=== PATIENT | male | born 1970 | race Caucasian/White ===

== ENCOUNTER 2020-04-26 23:54 | Emergency (ER) | payer OTHER, SELFPAY ==
--- NOTE | ~2020-04-26 | XR_ITS ---
EXAMINATION: XR abdomen/kub 1V DATE: 04/27/2020 01:05 INDICATION: Left flank pain TECHNIQUE: A supine view of the abdomen on 2 radiographs was obtained. COMPARISON: None. FINDINGS: 4-5 mm stone projects over the lower pole of the left kidney. There is an additional 3-4 mm stone in the proximal left ureter projecting near the tip of the L5 left transverse process. Moderate amount o f stool in the proximal colon. No dilated gas-filled bowel to suggest obstruction. Small bone island in the left innominate bone. 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 IMPRESSION: 1. Left nephrolithiasis including 3-4 mm stone in the proximal left ureter. Reviewed, dictated and finalized at location A.
--- NOTE | ~2020-04-26 | CT_ITS ---
EXAMINATION: CT abdomen pelvis wo con DATE: 04/27/2020 00:55 INDICATION: Left flank pain. Hematuria. TECHNIQUE: Computed tomography (CT) of the abdomen and pelvis was performed without intravenous contr ast. Automated exposure control and iterative reconstruction technique were employed. The dose-length product was 1004.06 mGy-cm. COMPARISON: None FINDINGS: Lung bases are clear. Heart size is normal. No pericardial or pleural effusion. Diffuse hepatic steat osis with focal sparing along the gallbladder fossa. Gallbladder and spleen are normal. Diffuse pancr eatic atrophy sparing the uncinate process with dilation of the main pancreatic duct measures up to 8 mm in diameter. There are bilateral fat-containing adrenal adenomas measuring 1.8 cm on both the lef t and right. Bilateral nephrolithiasis including 4 mm stone at the lower pole of the left kidney, 4-5 mm stone at a lower pole calyx of the left kidney and 4 mm stone in the proximal left ureter. There is mild left hydronephrosis. Bladder is normal. There is mild colonic diverticulosis with a sigmoid p redominance. There is no adjacent inflammatory change to suggest diverticulitis. No free intraperito chloe gas or fluid. No pathologically enlarged abdominal or pelvic lymphadenopathy. Moderate thoracolu mbar spondylosis. IMPRESSION: 1. Bilateral nephrolithiasis including a 4 mm at least partially obstructing stone in the proximal le ft ureter with mild left hydronephrosis. 2. Pancreatic atrophy with dilation of the main pancreatic duct. Differential would include sequela o f chronic pancreatitis or occult malignancy the head of the pancreas. There is no clear history for p rior pancreatitis would consider multiphase pre and postcontrast CT or MRI. Reviewed, dictated and finalized at location A. IMPRESSION: 1. Bilateral nephrolithiasis including a 4 mm at least partially obstructing st one in the proximal left ureter with mild left hydronephrosis. 2. Pancreatic atrophy with dilation of the main pancreatic duct. Differential w ould include sequela of chronic pancreatitis or occult malignancy the head of t he pancreas. There is no clear history for prior pancreatitis would consider mu ltiphase pre and postcontrast CT or MRI.
[2020-04-26 23:57] VITALS: BP 161/95; PULSE 75; RESP 20; TEMP 36.8; O2SAT 100
[2020-04-27 00:21] LABS: Basophils Absolute Auto 0.1 K/mm3 (0.0-0.1); Basophils Percent Auto 0.4 % (0.2-1.2); Eosinophils Absolute Auto 0.1 K/mm3 (0-0.3); Eosinophils Percent Auto 0.4 % (0-4.4); Hematocrit 44.8 % (42.0-52.0); Hemoglobin 15.6 g/dL (14.0-18.0); Immature Granulocyte Absolute 0.05 K/mm3 (0.00-0.031); Immature Granulocyte Percent A 0.4 % (0-0.5); Lymphocytes Absolute Auto 2.05 K/mm3 (0.9-3.2); Lymphocytes Percent Auto 16.2 % (18.3-44.2); Mean Corpuscular HGB Conc 34.8 g/dl (32-36); Mean Corpuscular Hemoglobin 31.6 pg (26-34); Mean Corpuscular Volume 90.9 fl (80-100); Mean Platelet Volume 9.2 fl (7.4-10.4); Monocytes Absolute Auto 0.9 K/mm3 (0.1-0.6); Monocytes Percent Auto 6.7 % (2.6-8.5); Neutrophils Absolute Auto 9.6 K/mm3 (1.3-6.7); Neutrophils Percent Auto 75.9 % (45.5-73.1); Platelet Count Result 300 k/mm3 (150-375); Red Blood Count 4.93 M/mm3 (4.6-6.20); Red Cell Distribution Width 12.2 % (11.5-14.5); White Blood Count 12.6 K/mm3 (4.5-10.0)
[2020-04-27 00:28] LABS: Add Urine Microscopic? YES; Appearance Urine Clear (Clear); Bilirubin Urine Negative (Negative); Blood Urine 3+ (Negative); Color Urine Yellow (Yellow); Glucose Urine UA 3+ mg/dL (Negative); Ketones Urine Trace mg/dL (Negative); Leukocyte Esterase Ur Negative LEU/UL (Negative); Mucus Urine Rare /lpf; Nitrate Urine Negative (Negative); Protein Urine 1+ mg/dL (Negative); RBC Urine >75 /hpf (0-2); Specific Grav Ur 1.026 (1.001-1.035); Squamous Epithelial Cell Urine Rare /hpf (Few); Urobilinogen Urine Negative mg/dL (<2.0); WBC Urine 0-3 /hpf
[2020-04-27 00:33] LABS: Blood Urea Nitrogen 13 mg/dL (9-20); Calcium 9.2 mg/dL (8.4-10.2); Carbon Dioxide 25 mmol/L (22-30); Chloride 100 mmol/L (98-107); Estimated CRCL calculation 155 ml/min; Estimated Glomerular Filt Rate > 60; Glucose 268 mg/dL (75-110); Potassium 4.4 mmol/L (3.4-5.0); Sodium 137 mmol/L (137-145)
--- NOTE | 2020-04-27 00:40 | ED.BACK ---
HPI - Back Pain/Injury General Chief Complaint: Abdominal Pain Stated Complaint: L FLANK PAIN Time Seen by Provider: 04/27/20 00:34 Source: patient Mode of arrival: ambulatory Limitations: no limitations History of Present Illness HPI Narrative: This patient is a 49 year old male with history of kidney stones who presents for evaluation of left lower back pain. His pain started on Monday and he thought pain was resolving. It worsened on Monday and tonight his pain became worse. He has been having nausea and vomiting , and he states this pain is due to a kidney stone. He feels like he will need to get the stone removed. He has not taken any medication for pain because he states medication normally does not help. HE denies fever or chills. He does not follow with urology for his kidney stones. MD elicited complaint: back pain Pertinent past history: kidney stones Onset (ago): day(s) (6) Timing: intermittent Pain scale (0-10): 7 Similar Symptoms Previously: Yes Quality: dull Location: left lower back Radiation: none Exacerbating factors: none Relieving factors: none Related Data Home Medications Medication Instructions Recorded Confirmed albuterol sulfate 90 mcg/actuation 2 puff INHALATION Q4H PRN gm 09/11/19 aerosol inhaler atorvastatin 20 mg tablet 20 mg PO DAILY 09/11/19 04/27/20 blood sugar diagnostic #10 each 09/11/19 blood-glucose meter #1 each 09/11/19 escitalopram oxalate 20 mg tablet 20 mg PO DAILY 09/11/19 04/27/20 fexofenadine 180 mg tablet 180 mg PO DAILY 09/11/19 04/27/20 lancets 33 gauge #100 each 09/11/19 metformin 500 mg tablet,extended 2,000 mg PO QPM tablet 09/11/19 04/27/20 release 24 hr Allergies Allergy/AdvReac Type Severity Reaction Status Date / Time No Known Allergies Allergy Verified 04/26/20 23:59 Review of Systems Review of Systems: All systems reviewed & are unremarkable except as noted in HPI and below Constitutional: Constitutional: Denies chills, Denies fever(s) and Denies weakness Respiratory: Respiratory: Denies cough and Denies dyspnea Gastrointestinal: Gastrointestinal: Denies abdominal pain, Reports nausea and Reports vomiting Genitourinary: Genitourinary: Denies hematuria, Denies oliguria, Denies dysuria and Denies urinary frequency Musculoskeletal: Musculoskeletal: Reports back pain PMFSH Past Medical History Medical History (Updated 04/27/20 @ 01:38 by Myriam Woods MD) Diabetes mellitus Kidney stone Surgical History Surgical History History of removal of calculus of renal pelvis through percutaneous nephrostomy Social History Social History (Updated 01/06/20 @ 08:34 by Love Paul [facility]) Smoking status: Never smoker Second hand tobacco smoke exposure: No Alcohol intake: current Substance use: never Substance use type: does not use Gender identity (if verbalized by the patient): Male Spiritual care concerns: No Agree to blood products: Yes Exam Narrative: Exam Narrative: GENERAL: Well-appearing, well-nourished, and in no acute distress. HEAD: Normocephalic, atraumatic EYES: PERRLA and EOMI, conjunctiva clear without discharge THROAT:Mucous membranes moist, NECK: Supple, RESPIRATORY: No respiratory distress, Airway patent, Respirations non-labored, Clear to auscultation without rales, rhonchi or wheeze HEART: Regular rate and rhythm. No murmur heard. Normal peripheral pulses. ABDOMEN: Soft, nontender, nondistended, normal active bowel sounds. No masses. No rebound or guarding, No organomegaly. left cva tenderness EXTREMITIES: No edema, normal strength with full range of motion. SKIN: Warm, dry, normal color without rash NEURO: Alert and oriented x3. CN 2-12 grossly intact. No focal deficits. PSYCH: Normal mood and affect. Course Reevaluation(s) Reevaluation #1: PAtient states that his pain has improved. He is comfortable with discharge home for
[2020-04-27] MEDS: SODIUM CHLORIDE 0.9% IV 1,000 ML 999 ML IV CONT (00:44)
[2020-04-27] MEDS: ONDANSETRON INJ 4 MG/2 ML VIAL IV PUSH (00:44)
[2020-04-27] MEDS: HYDROMORPHONE HCL 1 MG/ML INJ IV PUSH (00:45)
[2020-04-27] MEDS: TAMSULOSIN HCL 0.4 MG CAPSULE PO (01:33)
[2020-04-27 01:50] VITALS: BP 151/85; PULSE 71; RESP 18; O2SAT 99
== END 2020-04-27 01:51 | disposition home or self-care (01) ==
PROVIDERS: Emergency Provider General Practice; PCP Family Medicine
DX: N20.2 Calculus of kidney with calculus of ureter (principal); E11.9 Type 2 diabetes mellitus without complications; Z79.84 Long term (current) use of oral hypoglycemic drugs; Z87.442 Personal history of urinary calculi
CPT/HCPCS: 36415; 74018; 74176; 80048; 81001; 85025; 96365; 96375; 99284; A9270; J0131; J1170; J2405; J7030

== ENCOUNTER 2020-06-26 10:39 | Outpatient (CLI) | payer OTHER, SELFPAY ==
--- NOTE | ~2020-06-26 | MR_ITS ---
EXAMINATION: MR MRCP wo/w con/w 3D wo ind DATE: 06/26/2020 12:14 INDICATION: Abnormal pancreatic ductal dilatation on CT TECHNIQUE: Magnetic resonance imaging (MRI) of the abdomen was performed without and with intravenous contrast. Sequences included coronal T2-weighted SS-FSE ARC, coronal T2-weighted FS SS-FSE, coronal T2-weighted 2D FS FIESTA, Water:Coronal LAVA-Flex, sagittal T2-weighted SS-FSE ARC, axial SSFSE ARC, axial 3D DualEcho, axial DWI B=600, axial T1-weighted LAVA, FAT:Coronal LAVA-Flex, and coronal in and opposed phase LAVA-Flex. Thick-slab T2-weighted FRFSE-XL images were obtained for magnetic resonance cholangiopancreatography (MRCP). Maximum intensity projection 3-D reconstructions of the volumetric data were created by the technologist. Postcontrast sequences included a time course of axial T1-weig hted LAVA, FAT:Coronal LAVA-Flex, coronal in and opposed phase LAVA-Flex, and Water:Coronal LAVA-Flex . COMPARISON: CT, 04/27/2020 CONTRAST: Multihance, 20 cc FINDINGS: ABDOMEN MRI: The lung bases are clear. The heart size is normal. The liver, spleen, and gallbladder a re normal. There are bilateral adrenal adenomas measuring 1.8 cm. Cysts of the kidneys measure up to 9 mm on the left. There is diffuse atrophy of the body and tail of the pancreas. There is a questiona ble 1.6 x 1.1 cm mass at the junction of the main pancreatic duct in the second portion of the duoden um. There are no pathologically enlarged abdominal lymph nodes. No dilated loops of bowel are present . ABDOMEN MRCP: Pancreas divisum is noted. The main pancreatic duct communicates directly with the seco nd portion of the duodenum. There is dilation of the main pancreatic duct throughout its course which measures up to 9 mm. There is no intrahepatic or extrahepatic biliary dilatation. The pancreatic veronica t in the uncinate process is normal in caliber. IMPRESSION: 1. Pancreas divisum with possible mass at the junction of the dorsal duct and second portion of the d uodenum resulting in diffuse pancreatic atrophy and pancreatic ductal distention. Endoscopic evaluati on is recommended. Reviewed, dictated and finalized at location A. IMPRESSION: 1. Pancreas divisum with possible mass at the junction of the dorsal duct and s econd portion of the duodenum resulting in diffuse pancreatic atrophy and pancr eatic ductal distention. Endoscopic evaluation is recommended.
[2020-06-26 11:23] LABS: Estimated Glomerular Filt Rate > 60
== END 2020-06-26 10:40 | disposition home or self-care (01) ==
LOC: ANHIMG 10:42
PROVIDERS: PCP Family Medicine; Visit Provider Family Medicine
DX: Q45.3 Other congenital malformations of pancreas and pancreatic duct (principal)
CPT/HCPCS: 36415; 74183; 76376; A9577

== ENCOUNTER 2020-08-15 02:16 | Outpatient (CLI) | payer OTHER, SELFPAY ==
[2020-08-15 18:59] LABS: SARS-CoV-2 RNA PCR Negative
== END 2020-08-15 02:17 | disposition home or self-care (01) ==
LOC: ANHCOVIDDT 02:16
PROVIDERS: PCP Family Medicine; Visit Provider Internal Medicine Gastroenterology
DX: Z01.812 Encounter for preprocedural laboratory examination (principal); Z20.828 Contact with and (suspected) exposure to other viral communicable diseases
CPT/HCPCS: 87635; C9803; U0003

== ENCOUNTER 2020-08-18 01:13 | Day surgery (SDC) | payer OTHER, SELFPAY ==
[2020-08-11 14:41] VITALS: BMI 37.3
[2020-08-18 13:20] VITALS: BP 147/91; PULSE 69; RESP 18; TEMP 36.9; O2SAT 100; BMI 36.0
--- NOTE | 2020-08-18 13:31 | WPDANESEPPF ---
Anes - Initial Pre Proc Eval Procedure: Operation Date: 08/18/20 14:15 Proposed Procedures p Screening Colonoscopy - Tha Baugh MD Date/Time: 08/18/20 13:31 Surgeon: Tha Baugh MD Pre Op Diagnosis: Neoplasm Screening Patient Data Age: 49 Gender: M Height: 6 ft Weight: 120.4 kg Last Vital Signs Temp 98.5 F 08/18/20 13:20 Pulse 69 08/18/20 13:20 Resp 18 08/18/20 13:20 BP 147/91 H 08/18/20 13:20 Pulse Ox 100 08/18/20 13:20 Allergies Allergy/AdvReac Type Severity Reaction Status Date / Time No Known Allergies Allergy Verified 08/18/20 13:16 Home Medications Medication Instructions Recorded Confirmed Type blood sugar diagnostic #10 each 09/11/19 05/07/20 History blood-glucose meter #1 each 09/11/19 05/07/20 History fexofenadine 180 mg tablet 180 mg PO DAILY 09/11/19 08/11/20 History albuterol sulfate 90 mcg/actuation 2 puff INHALATION Q4H PRN #8.5 gm 07/07/20 08/18/20 Rx aerosol inhaler atorvastatin 20 mg tablet 20 mg PO DAILY #90 tablet 07/07/20 08/18/20 Rx escitalopram oxalate 20 mg tablet 20 mg PO DAILY #90 tablet 07/07/20 08/18/20 Rx glimepiride 4 mg tablet 4 mg PO BID #180 tablet 07/07/20 08/11/20 Rx lancets #100 each 07/07/20 Rx lancets #50 each 07/07/20 History lisinopril 10 mg tablet 10 mg PO DAILY #90 tablet 07/07/20 08/11/20 Rx metformin 1,000 mg tablet 1,000 mg PO BID #180 tablet 07/07/20 08/11/20 Rx peg 3350-electrolytes 236 240 ml PO Q10M #4000 ml 08/05/20 Rx gram-22.74 gram-6.74 gram-5.86 gram solution omega 9-tmv-jxv-fish oil [Fish Oil] 1 cap PO DAILY 08/11/20 08/11/20 History Patient hx anesthesia problems: none Family hx anesthesia problems: none PMFSH Past Medical History Medical History (Updated 07/16/20 @ 11:56 by Tha Baugh MD) Colon cancer screening Diabetes mellitus Hyperlipidemia Hypertension Kidney stone Pancreas divisum Pancreatic mass Surgical History Surgical History History of removal of calculus of renal pelvis through percutaneous nephrostomy Family History Family History Mother Diabetes mellitus Hypertension Family history of renal cell carcinoma Father Family history of renal cell carcinoma Other Cerebrovascular accident Depression Social History Social History Smoking status: Never smoker Second hand tobacco smoke exposure: No Alcohol intake: current Drinks per week: 1 Substance use: current Substance use type: marijuana Other substance usage details: HAS ONLY DONE MARIJUANA EDIBLE A COUPLE OF TIMES Last use: MONTH AGO Living arrangements: with family Gender identity (if verbalized by the patient): Male Spiritual care concerns: No Agree to blood products: Yes Anes - Eval Final PreProcedure Day of Procedure 08/18/20 13:31 Patient weight: obese Heart: regular rate and rhythm Lungs: clear to auscultation Airway: Mallampati scale Neurological: alert and oriented Last oral intake: >/= 8 hours ASA classification: III Emergent: no Anesthetic plan: proceed Anesthesia type and monitoring: general GIVS and standard monitoring Informed Consent: The patient's anesthetic plan and its attendant risks and benefits were discussed with the patient/family/POA. Questions were solicited and answers provided to the satisfaction of the patient/family/POA.
[2020-08-18] MEDS: LACTATED RINGERS 1,000 ML 150 ML IV CONT (13:33)
[2020-08-18 13:34] LABS: Glucose Point of Care 193 (65-105)
--- NOTE | 2020-08-18 13:46 | PM.HPGS ---
History of Present Illness History of Present Illness Consent: Risks, benefits, and alternatives have been discussed and questions answered. Patient agrees to proceed with procedure. Chief complaint: Neoplasm Screening Narrative: Guillaume Zapien is a 49 year old male here for screening colonoscopy, never had one. Review of Systems Constitutional: Constitutional: Denies headache(s) and Denies weakness Eyes: Eyes: Denies blurry vision ENT: Reports Normal hearing present, Denies headache(s) and Denies neck pain Cardiovascular: Cardiovascular: Denies chest pain and Denies dyspnea Respiratory: Respiratory: Denies dyspnea Gastrointestinal: Gastrointestinal: Reports no additional gastrointestinal complaints Genitourinary: Genitourinary: Denies dysuria Musculoskeletal: Musculoskeletal: Denies neck pain Integumentary/Breasts: Skin/Breast: Denies dry skin Neurologic: Reports Normal hearing present, Denies headache(s) and Denies weakness Psychiatric: Psychiatric: Denies anxiety Endocrine: Endocrine: Denies change in body appearance Hematologic/Lymphatic: Hematologic/Lymphatic: Denies easy bleeding Allergic/Immunologic: Allergic/Immunologic: Denies urticaria PMFSH Past Medical History Medical History (Updated 07/16/20 @ 11:56 by Tha Baugh MD) Colon cancer screening Diabetes mellitus Hyperlipidemia Hypertension Kidney stone Pancreas divisum Pancreatic mass Surgical History Surgical History History of removal of calculus of renal pelvis through percutaneous nephrostomy Family History Family History Mother Diabetes mellitus Hypertension Family history of renal cell carcinoma Father Family history of renal cell carcinoma Other Cerebrovascular accident Depression Social History Social History Smoking status: Never smoker Second hand tobacco smoke exposure: No Alcohol intake: current Drinks per week: 1 Substance use: current Substance use type: marijuana Other substance usage details: HAS ONLY DONE MARIJUANA EDIBLE A COUPLE OF TIMES Last use: MONTH AGO Living arrangements: with family Gender identity (if verbalized by the patient): Male Spiritual care concerns: No Agree to blood products: Yes Meds Home Medications and Allergies Home Medications Medication Instructions Recorded Confirmed Type blood sugar diagnostic #10 each 09/11/19 05/07/20 History blood-glucose meter #1 each 09/11/19 05/07/20 History fexofenadine 180 mg tablet 180 mg PO DAILY 09/11/19 08/11/20 History albuterol sulfate 90 mcg/actuation 2 puff INHALATION Q4H PRN #8.5 gm 07/07/20 08/18/20 Rx aerosol inhaler atorvastatin 20 mg tablet 20 mg PO DAILY #90 tablet 07/07/20 08/18/20 Rx escitalopram oxalate 20 mg tablet 20 mg PO DAILY #90 tablet 07/07/20 08/18/20 Rx glimepiride 4 mg tablet 4 mg PO BID #180 tablet 07/07/20 08/11/20 Rx lancets #100 each 07/07/20 Rx lancets #50 each 07/07/20 History lisinopril 10 mg tablet 10 mg PO DAILY #90 tablet 07/07/20 08/11/20 Rx metformin 1,000 mg tablet 1,000 mg PO BID #180 tablet 07/07/20 08/11/20 Rx peg 3350-electrolytes 236 240 ml PO Q10M #4000 ml 08/05/20 Rx gram-22.74 gram-6.74 gram-5.86 gram solution omega 7-cqu-ebz-fish oil [Fish Oil] 1 cap PO DAILY 08/11/20 08/11/20 History Allergies Allergy/AdvReac Type Severity Reaction Status Date / Time No Known Allergies Allergy Verified 08/18/20 13:16 Vital Signs Vital Signs - 24 hr 08/18/20 13:20 Temperature 98.5 F Pulse Rate 69 Respiratory Rate 18 Blood Pressure 147/91 H Pulse Oximetry 100 Exam Const: General: comfortable and no acute distress HENMT: General nose exam: Normal nares present Eyes: General: appearance normal, both eyes and all related structures Neck: Neck: no JVD Resp: Auscultation: clear to auscu
[2020-08-18 14:18] VITALS: BP 110/64; PULSE 78; RESP 16; O2SAT 96
[2020-08-18 14:28] VITALS: BP 113/65; PULSE 71; RESP 16; O2SAT 96
[2020-08-18 14:38] VITALS: BP 122/76; PULSE 72; RESP 16; O2SAT 96
== END 2020-08-18 15:06 | disposition home or self-care (01) ==
PROVIDERS: PCP Family Medicine; Visit Provider Internal Medicine Gastroenterology
PROC: 0DJD8ZZ Inspection of Lower Intestinal Tract, Via Natural or Artificial Opening Endoscopic (ICD-10-PCS; CPT 45378; principal; 2020-08-18 14:15)
DX: Z12.11 Encounter for screening for malignant neoplasm of colon (principal); D12.3 Benign neoplasm of transverse colon; D12.4 Benign neoplasm of descending colon; K63.5 Polyp of colon; I10 Essential (primary) hypertension; E11.9 Type 2 diabetes mellitus without complications; E78.5 Hyperlipidemia, unspecified; Q45.3 Other congenital malformations of pancreas and pancreatic duct; Z79.84 Long term (current) use of oral hypoglycemic drugs; E66.9 Obesity, unspecified; Z68.36 Body mass index [BMI] 36.0-36.9, adult; F12.90 Cannabis use, unspecified, uncomplicated
CPT/HCPCS: 45385; 88305; J2704; J7120

== ENCOUNTER 2021-01-19 14:31 | Outpatient (CLI) | payer OTHER, SELFPAY | END 2021-01-19 14:32 | disposition home or self-care (01) | LOC: ANHCOVIDVC 14:31 | PROVIDERS: PCP Physician Assistant | DX: Z23 Encounter for immunization (principal) | CPT/HCPCS: 0001A; 91300 ==

== ENCOUNTER 2021-02-09 14:32 | Outpatient (CLI) | payer OTHER, SELFPAY | END 2021-02-09 14:33 | disposition home or self-care (01) | LOC: ANHCOVIDVC 14:32 | PROVIDERS: PCP Physician Assistant | DX: Z23 Encounter for immunization (principal) | CPT/HCPCS: 0002A; 91300 ==

== ENCOUNTER 2023-09-09 23:35 | Emergency (ER) | payer BC, SELFPAY ==
--- NOTE | ~2023-09-09 | CT_ITS ---
EXAMINATION: CT abdomen pelvis wo con DATE: 09/10/2023 00:36 INDICATION: Right flank pain TECHNIQUE: Computed tomography (CT) of the abdomen and pelvis was performed without intravenous contr ast. The dose-length product (DLP) was 721.22 mGy-cm. Automated exposure control and iterative recons truction technique were employed. COMPARISON: 04/27/2020 FINDINGS: The lung bases are clear. The heart size is normal. Patient is status post interval Whipple procedure. Pneumobilia is noted. The liver and spleen are normal. There are bilateral adrenal adenom as. There is a 4 mm stone at the right ureterovesicular junction causing mild right hydroureteronephr osis. There are are nonobstructing stones in both kidneys. No pathologically enlarged abdominal or pe lvic lymph nodes are identified. No free intraperitoneal gas or evidence of bowel obstruction. There is mild edema of the small bowel mesentery. There is severe lumbar spondylosis at L5-S1. IMPRESSION: 1. 4 mm stone of the right ureterovesicular junction causing mild hydroureteronephrosis. 2. Nonobstructing bilateral nephrolithiasis. 3. Interval Whipple procedure. Reviewed, dictated and finalized at location F. [employer] IMPRESSION: 1. 4 mm stone of the right ureterovesicular junction causing mild hydroureteron ephrosis. 2. Nonobstructing bilateral nephrolithiasis. 3. Interval Whipple procedure.
[2023-09-09 23:44] VITALS: BP 167/118; PULSE 73; RESP 15; TEMP 36.5; O2SAT 100
--- NOTE | 2023-09-09 23:48 | ED.ABDPAIN ---
HPI - Abdominal Pain General Chief Complaint: Abdominal Pain Stated Complaint: R flank pain Time Seen by Provider: 09/09/23 23:44 History of Present Illness HPI narrative: Patient is a 52-year-old male with history of multiple kidney stones over the last 20 years, only required stone extraction once, neuroendocrine tumor status post Whipple in 2019 here with right-sided flank pain. He states he has been having intermittent right-sided flank pain over the last 4 days. He notes that it starts in his right flank and rib radiates down into his right groin. This feels very similar to prior episodes of kidney stones in the past. He states majority of his stones have been able to be passed on his own without difficulty. No fever chills. Noted dysuria, hematuria. No GI symptoms. He does not currently have a urologist that he follows with. No chest pain or shortness of breath. Related Data Home Medications Medication Instructions Recorded Confirmed blood-glucose meter (Accu-Chek #1 ea 09/11/19 09/08/20 Guide Glucose Meter) fexofenadine 180 mg tablet 180 mg PO DAILY 09/11/19 09/08/20 (Flor Allergy) lancets (Accu-Chek Fastclix Lancet #50 ea 07/07/20 09/08/20 Drum) omega 3-cya-lom-fish oil 1,000 mg 1 cap PO DAILY 08/11/20 09/08/20 (120 mg-180 mg) capsule (Fish Oil) Allergies Allergy/AdvReac Type Severity Reaction Status Date / Time No Known Allergies Allergy Verified 09/09/23 23:39 Review of Systems Review of Systems: All systems reviewed & are unremarkable except as noted in HPI and below PMFSH Past Medical History Medical History Colon cancer screening Hyperlipidemia Hypertension Kidney stone Pancreas divisum Pancreatic mass Surgical History Surgical History History of removal of calculus of renal pelvis through percutaneous nephrostomy Family History Family History Mother Diabetes mellitus Hypertension Family history of renal cell carcinoma Father Family history of renal cell carcinoma Other Cerebrovascular accident Depression Social History Social History Smoking status: Never smoker Second hand tobacco smoke exposure: No Alcohol intake: current Drinks per week: 1 Alcohol use details: 2 times monthly. Substance use: current Substance use type: marijuana Other substance usage details: HAS ONLY DONE MARIJUANA EDIBLE A COUPLE OF TIMES Last use: MONTH AGO Living arrangements: with family Occupation/Education: occupation Gender identity (if verbalized by the patient): Male Spiritual care concerns: No Agree to blood products: Yes Exam Narrative: GENERAL: Well-appearing, well-nourished, and in no acute distress. HEAD: Normocephalic, atraumatic. EYES: PERRLA and EOMI. ENT: Nares clear. Mucous membranes moist. NECK: Supple. CHEST: Clear to auscultation. No respiratory distress. HEART: Regular rate and rhythm. Normal peripheral pulses. ABDOMEN: Soft, Right CVA tenderness, no left CVA tenderness, tenderness over the right side of the abdomen, no rebound or guarding. EXTREMITIES: Normal range of motion. No edema. SKIN: Warm, dry, no rash. NEURO: No focal deficits. Alert and oriented x3. PSYCH: Normal mood and affect. Course Course Emergency Course: Chart review performed. Patient here with right flank pain x4 days. History of kidney stone, gets about 2 per year. Triage vitals normal. [facility] he has a history of Neuroendocrine Tumor s/p Whipple in 2019. Patient seen evaluated, no acute distress. Concern for possible kidney stone versus infection. Will do CT abdomen pelvis, lab work, UA, pain control. Lab work reviewed. WBC 12.6, renal function stable. Lactic mi
[2023-09-10] VITALS (28 sets, daily range): BP systolic 119–166; BP diastolic 61–92; PULSE 62–91; RESP 13–22; O2SAT 92–100
[2023-09-10 00:08] LABS: Basophils Absolute Auto 0.1 K/mm3 (0.0-0.1); Basophils Percent Auto 0.5 % (0.2-1.2); Eosinophils Absolute Auto 0.1 K/mm3 (0-0.3); Hematocrit 39.3 % (42.0-52.0); Hemoglobin 12.1 g/dL (14.0-18.0); Immature Granulocyte Absolute 0.05 K/mm3 (0.00-0.031); Immature Granulocyte Percent A 0.4 % (0-0.5); Lymphocytes Absolute Auto 2.01 K/mm3 (0.9-3.2); Lymphocytes Percent Auto 15.9 % (18.3-44.2); Mean Corpuscular HGB Conc 30.8 g/dl (32-36); Mean Corpuscular Hemoglobin 24.7 pg (26-34); Mean Corpuscular Volume 80.2 fl (80-100); Monocytes Absolute Auto 1.3 K/mm3 (0.1-0.6); Monocytes Percent Auto 10.4 % (2.6-8.5); Neutrophils Absolute Auto 9.1 K/mm3 (1.3-6.7); Neutrophils Percent Auto 71.8 % (45.5-73.1); Platelet Count Result 376 k/mm3 (150-375); Red Cell Distribution Width 14.6 % (11.5-14.5); White Blood Count 12.6 K/mm3 (4.5-10.0)
[2023-09-10 00:34] LABS: Lactic Acid Reflex 2.5 mmol/L (0.7-2.0); Lipase 22 U/L (23-300)
[2023-09-10 01:06] LABS: Add Urine Microscopic? YES; Appearance Urine Cloudy (Clear); Bacteria Urine None Seen /hpf; Bilirubin Urine Negative (Negative); Blood Urine 3+ (Negative); Calcium Oxalate Crystals Urine Present /hpf; Color Urine Yellow (Yellow); Glucose Urine UA 3+ mg/dL (Negative); Ketones Urine Negative (Negative); Leukocyte Esterase Ur Negative LEU/UL (Negative); Need Manual Microscopic Reviewed; Nitrate Urine Negative (Negative); Non Pathogenic Casts 0-2; Protein Urine Negative (Negative); RBC Urine 21-50 /hpf (0-2); Specific Grav Ur 1.031 (1.001-1.035); Squamous Epithelial Cell Urine None seen /hpf (Few); Urobilinogen Urine 0.2 mg/dL (<2.0); WBC Urine 0-5 /hpf
[2023-09-10] MEDS: HYDROmorphone HCL INJ (*CRX) 1 MG/ML SYR IV PUSH (01:15)
[2023-09-10] MEDS: KETOROLAC 15 MG/ML VIAL (*BKC) IV PUSH (01:15)
[2023-09-10 01:26] LABS: Alanine Aminotransferase 23 U/L (6-50); Albumin Level 4.5 g/dL (3.5-5.1); Alkaline Phosphatase 73 U/L (38-126); Anion Gap 11 mmol/L (8-16); Aspartate Amino Transferase 29 U/L (17-59); Bilirubin,Total 0.4 mg/dL (0.2-1.3); Blood Urea Nitrogen 21 mg/dL (9-20); Calcium 9.7 mg/dL (8.4-10.2); Carbon Dioxide 25 mmol/L (22-30); Chloride 102 mmol/L (98-107); Estimated CRCL calculation 93 ml/min; Estimated Glomerular Filt Rate > 60; Glucose 149 mg/dL (65-110); Potassium 4.5 mmol/L (3.4-5.0); Sodium 138 mmol/L (137-145)
[2023-09-10] MEDS: SODIUM CHLORIDE 0.9% IV 1,000 ML 999 ML IV CONT (01:41)
[2023-09-10] MEDS: ONDANSETRON INJ 4 MG/2 ML VIAL IV PUSH (01:41)
[2023-09-10] MEDS: MORPHINE SULFATE (*CRX) 4 MG/ML INJ IV PUSH (01:42)
[2023-09-10 02:58] LABS: Reflex Lactic Acid Yes or No Add Lactic
[2023-09-10] MEDS: TAMSULOSIN HCL 0.4 MG CAPSULE PO (03:21)
[2023-09-10 03:51] LABS: Lactic Acid 1.6 mmol/L (0.7-2.0)
== END 2023-09-10 03:28 | disposition home or self-care (01) ==
PROVIDERS: Emergency Provider Student in an Organized Health Care Education/Training Program
DX: N13.2 Hydronephrosis with renal and ureteral calculous obstruction (principal); E78.5 Hyperlipidemia, unspecified; I10 Essential (primary) hypertension; Z87.442 Personal history of urinary calculi
CPT/HCPCS: 36415; 74176; 80053; 81001; 83605; 83690; 85025; 96361; 96374; 96375; 99284; A9270; J2270; J2405; J7030